=== PATIENT | male | born 1950 | race Caucasian/White ===

== ENCOUNTER 2016-07-04 12:06 | Observation (INO) | payer MEDICARE, OTHER ==
[2016-07-04] MEDS ORDERED: ASPIRIN CHEW 81 MG TABLET PO STA (16:03)
[2016-07-04] MEDS ORDERED: ASPIRIN CHEW 81 MG TABLET ONE (16:05)
[2016-07-04] MEDS ORDERED: oxyCODONE 5 MG TABLET PO PRN (17:16)
[2016-07-04] MEDS ORDERED: ACETAMINOPHEN 325 MG TABLET PO PRN (17:16)
[2016-07-04] MEDS ORDERED: SODIUM CHLORIDE FLUSH 0.9% 10 ML SYRINGE IVP PRN (17:16)
[2016-07-04] MEDS: SODIUM CHLORIDE FLUSH 0.9% 10 ML SYRINGE IVP SCH (22:34)
[2016-07-05] MEDS: SODIUM CHLORIDE FLUSH 0.9% 10 ML SYRINGE IVP SCH (05:42)
[2016-07-05] MEDS ORDERED: ATORVASTATIN 40 MG TABLET PO ONE ×2 (07:53→09:30)
[2016-07-05] MEDS ORDERED: ASPIRIN 325 MG TABLET PO SCH (08:00)
[2016-07-05] MEDS ORDERED: POLYETHYLENE GLYCOL 3350 17 GM PACKET PO SCH (09:00)
[2016-07-05] MEDS ORDERED: LORazepam 2 MG/ML SYRINGE IVP PRN (11:32)
[2016-07-05] MEDS ORDERED: ATORVASTATIN 40 MG TABLET PO SCH (21:00)
== END 2016-07-05 14:14 | disposition home or self-care (01) ==
DX: R20.8 Other disturbances of skin sensation (principal); R20.0 Anesthesia of skin; F17.290 Nicotine dependence, other tobacco product, uncomplicated; Z82.49 Family history of ischemic heart disease and other diseases of the circulatory system; E78.5 Hyperlipidemia, unspecified; I10 Essential (primary) hypertension; I27.2 Other secondary pulmonary hypertension; I51.7 Cardiomegaly; E66.01 Morbid (severe) obesity due to excess calories; Z68.35 Body mass index [BMI] 35.0-35.9, adult
CPT/HCPCS: 36415; 70450; 70551; 80053; 80061; 83690; 85025; 85610; 93005; 93010; 93306; 93880; 96374; 99284; 99285; A9270; G0378; J2060

== ENCOUNTER 2016-07-27 09:59 | Outpatient (CLI) | payer MEDICARE, OTHER | END 2016-07-27 10:00 | disposition home or self-care (01) | DX: G47.30 Sleep apnea, unspecified (principal); G47.8 Other sleep disorders; R06.83 Snoring; G47.10 Hypersomnia, unspecified | CPT/HCPCS: 99203; G0463 ==

== ENCOUNTER 2016-07-30 21:49 | Outpatient (CLI) | payer MEDICARE, OTHER | END 2016-07-30 21:50 | disposition home or self-care (01) | DX: G47.31 Primary central sleep apnea (principal) ==

== ENCOUNTER 2016-08-10 09:19 | Outpatient (CLI) | payer MEDICARE, OTHER ==
[2016-08-10] MEDS ORDERED: ALBUTEROL NEB 2.5 MG/3 ML INH ONE (09:59)
== END 2016-08-10 09:20 | disposition home or self-care (01) ==
DX: R06.00 Dyspnea, unspecified (principal)
CPT/HCPCS: 94060; 94729; J7613

== ENCOUNTER 2016-08-17 10:22 | Outpatient (CLI) | payer MEDICARE, OTHER | END 2016-08-17 10:23 | disposition home or self-care (01) | DX: G47.33 Obstructive sleep apnea (adult) (pediatric) (principal); G47.31 Primary central sleep apnea | CPT/HCPCS: 99213; G0463 ==

== ENCOUNTER 2016-09-02 23:05 | Outpatient (CLI) | payer MEDICARE, OTHER | END 2016-09-02 23:06 | disposition home or self-care (01) | DX: G47.31 Primary central sleep apnea (principal) ==

== ENCOUNTER 2016-09-14 09:10 | Outpatient (CLI) | payer MEDICARE, OTHER | END 2016-09-14 09:11 | disposition home or self-care (01) | DX: G47.33 Obstructive sleep apnea (adult) (pediatric) (principal) | CPT/HCPCS: 99214; G0463 ==

== ENCOUNTER 2016-11-03 08:52 | Outpatient (CLI) | payer MEDICARE, OTHER | END 2016-11-03 08:53 | disposition home or self-care (01) | LOC: SC 08:52 | PROVIDERS: ATTEND Nurse Practitioner Family | DX: G47.33 Obstructive sleep apnea (adult) (pediatric) (principal); G47.31 Primary central sleep apnea | CPT/HCPCS: 99214; G0463; 99212 ==

== ENCOUNTER 2016-11-05 09:35 | Outpatient (CLI) | payer MEDICARE, OTHER ==
[2016-11-05 13:25] LABS: ALBUMIN/GLOBULIN RATIO 1.5 (1.0-2.2); BILIRUBIN,TOTAL 0.9 mg/dL (0.2-1.0); BUN - BLOOD UREA NITROGEN 20 mg/dL (6-20); CALCIUM 9.2 mg/dL (8.5-10.3); CARBON DIOXIDE - CO2 24 mmol/L (21-32); CHLORIDE 105 mmol/L (101-111); CHOL/HDL RATIO 3.9 (<5.0); CHOLESTEROL 131 mg/dL; CREATININE 1.1 mg/dL (0.6-1.2); GFR - MDRD 67 (>89); GLUCOSE 89 mg/dL (70-100); HDL CHOLESTEROL 34 mg/dL; LDL/HDL RATIO 2.4 (<3.6); POTASSIUM 4.5 mmol/L (3.5-5.0); SODIUM 137 mmol/L (135-145); TOTAL PROTEIN 6.7 g/dL (6.7-8.2); TRIGLYCERIDES 68 mg/dL; VLDL CHOLESTEROL 14 mg/dL
== END 2016-11-05 09:36 | disposition home or self-care (01) ==
LOC: LAB.WCP 09:35
PROVIDERS: ATTEND Physician Assistant Medical
DX: E78.5 Hyperlipidemia, unspecified (principal)
CPT/HCPCS: 36415; 80053; 80061

== ENCOUNTER 2017-02-02 09:46 | Outpatient (CLI) | payer MEDICARE, OTHER | END 2017-02-02 09:47 | disposition home or self-care (01) | LOC: SC 09:46 | PROVIDERS: ATTEND Nurse Practitioner Family | DX: G47.33 Obstructive sleep apnea (adult) (pediatric) (principal) | CPT/HCPCS: 99214; G0463; 99212 ==

== ENCOUNTER 2017-02-18 09:36 | Outpatient (CLI) | payer MEDICARE, OTHER ==
--- NOTE | 2017-02-18 11:04 | Ultrasound Report ---
RIGHT UPPER QUADRANT ULTRASOUND: 02/18/2017 CLINICAL INDICATION: Elevated liver enzymes. TECHNIQUE: Real-time scanning was performed with sales representative girls[employer] static images obtained. FINDINGS: The liver measures 15.2 cm. Hepatic echogenicity is increased, compatible with fatty infil tration. No focal parenchymal lesion or intrahepatic biliary dilatation is present. The common bile d uct measures 6 mm. The gallbladder is normal. The right kidney measures 10.9 cm, and demonstrates no hydronephrosis. No free fluid is present. IMPRESSION: FATTY INFILTRATION OF THE LIVER. NO EVIDENCE OF CHOLELITHIASIS OR BILIARY OBSTRUCTION. JOB #: [id number] EXT JOB #:[id number]
== END 2017-02-18 09:37 | disposition home or self-care (01) ==
LOC: DI 09:36
PROVIDERS: ATTEND Physician Assistant Medical
DX: K76.0 Fatty (change of) liver, not elsewhere classified (principal)
CPT/HCPCS: 76705

== ENCOUNTER 2017-04-12 08:46 | Outpatient (CLI) | payer MEDICARE, OTHER | END 2017-04-12 08:47 | disposition home or self-care (01) | LOC: SC 08:46 | PROVIDERS: ATTEND Nurse Practitioner Family | DX: G47.33 Obstructive sleep apnea (adult) (pediatric) (principal); G47.31 Primary central sleep apnea | CPT/HCPCS: 99214; G0463; 99212 ==

== ENCOUNTER 2017-05-19 09:59 | Outpatient (CLI) | payer MEDICARE, OTHER | END 2017-05-19 10:00 | disposition home or self-care (01) | LOC: SC 09:59 | PROVIDERS: ATTEND Nurse Practitioner Family | DX: G47.33 Obstructive sleep apnea (adult) (pediatric) (principal); G47.31 Primary central sleep apnea | CPT/HCPCS: 99214; G0463; 99212 ==

== ENCOUNTER 2017-08-30 13:51 | Outpatient (CLI) | payer MEDICARE, OTHER | END 2017-08-30 13:52 | disposition home or self-care (01) | LOC: SC 13:51 | PROVIDERS: ATTEND Nurse Practitioner Family | DX: G47.33 Obstructive sleep apnea (adult) (pediatric) (principal) | CPT/HCPCS: 99214; G0463; 99212 ==

== ENCOUNTER 2019-08-15 17:45 | Outpatient (CLI) | payer MEDICARE, OTHER | END 2019-08-15 17:46 | disposition home or self-care (01) | LOC: COV 17:45 | PROVIDERS: ATTEND Family Medicine | DX: R05 Cough (principal) ==

== ENCOUNTER 2019-10-05 13:17 | Emergency (ER) | payer MEDICARE, OTHER ==
--- NOTE | 2019-10-05 13:57 | XRAY Report ---
Reason: CHEST WALL PAIN Procedure Date: 10/05/2019 Accession Number: [id number] / [id number] Procedure: XR - Chest 2 View X-Ray CPT Code: 95987 Final Report FULL RESULT: EXAM: CHEST RADIOGRAPHY EXAM DATE: 10/05/2019 01:42 PM. CLINICAL HISTORY: CHEST WALL PAIN. COMPARISON: CHEST 2 VIEW PA/LAT 07/06/2016 3:31 PM. TECHNIQUE: 2 views. FINDINGS: Lungs/Pleura: Patchy opacities in the right lung base. Small right-sided pleural effusion. Mediastinum: Heart and mediastinal contours are unremarkable. Other: None. IMPRESSION: Irregular opacities in the right lung base with small right-sided pleural effusion.. RADIA
[2019-10-05] MEDS ORDERED: LIDOCAINE 1% 2 ML VIAL MC ONE (15:49)
[2019-10-05] MEDS ORDERED: KETOROLAC 60 MG/2 ML VIAL IM STA (15:49)
[2019-10-05] MEDS ORDERED: DEXAMETHASONE 10 MG/ML VIAL PO STA (15:49)
[2019-10-05] MEDS ORDERED: CHERRY SYRUP 10 ML UDC PO ONE (15:49)
[2019-10-05] MEDS ORDERED: cefTRIAXone 1 GM VIAL IM STA (15:49)
--- NOTE | 2019-10-05 15:51 | ED Physician Documentation ---
PD HPI URI - Stated complaint Stated Complaint: R SIDE PAIN - Chief complaint Chief Complaint: Ext Problem - History obtained from History obtained from: Patient - History of Present Illness Timing - onset: How many weeks ago (2) Timing duration: Days (2) Timing details: Gradual onset, Still present, Waxing and waning Associated symptoms: Dry cough, Chest pain Contributing factors: Other (fall against the right ribs) Improves by: Rest Worsened by: Activity, Breathing, Position Similar symptoms before: Diagnosis (pneumonia) Recently seen: Other (had coronavirus test one month ago after exposure) - Additional information Additional information: 69-year-old male with a prior history of pneumonia has had a fall against a wall of about 3 feet hitting his right chest wall about 2 weeks ago. He had pain initially with this and that seemed to resolve and then about 3 days ago his pain increased he has a sharp pain with inspiration and a background pain of about 5 out of 10. He has a cough he denies fever or production from the cough. He has had pneumonia more than once and he remembers the right lung being involved more frequently. Review of Systems Constitutional: denies: Fever, Myalgias Eyes: denies: Decreased vision Ears: denies: Ear pain Nose: denies: Rhinorrhea / runny nose, Congestion Throat: denies: Sore throat Cardiac: reports: Chest pain / pressure. denies: Palpitations, Pedal edema, Calf pain Respiratory: reports: Dyspnea, Cough GI: denies: Abdominal Pain, Nausea, Vomiting : denies: Dysuria, Frequency PD PAST MEDICAL HISTORY - Past Medical History Cardiovascular: None Respiratory: None Endocrine/Autoimmune: None GI: None : None HEENT: None Psych: None Musculoskeletal: None Derm: None - Past Surgical History Past Surgical History: Yes - Present Medications Home Medications: Ambulatory Orders Medication Instructions Recorded Confirmed Aspirin [Aspirin EC] 81 mg PO DAILY #30 tablet. 07/05/16 Atorvastatin Calcium 20 mg PO DAILY #30 tablet 07/05/16 Azithromycin [Zithromax] 250 mg PO DAILY #6 tablet 10/05/19 Benzonatate [Tessalon Perle] 100 - 200 mg PO TID PRN #30 capsule 10/05/19 Hydrocodone/Acetaminophen 1 - 2 each PO Q6H PRN #14 tablet 10/05/19 [Hydrocodon-Acetaminophen 5-325] - Allergies Allergies/Adverse Reactions: Allergies Allergy/AdvReac Type Severity Reaction Status Date / Time No Known Drug Allergies Allergy Verified 10/05/19 13:24 - Social History Does the pt smoke?: Yes Smoking Status: Current every day smoker Does the pt drink ETOH?: Yes Does the pt have substance abuse?: No - Immunizations Immunizations are current?: No Immunizations: TDAP >10years/unknown PD ED PE NORMAL - Vitals Vital signs reviewed: Yes (tachy and hypertension with low grade fever) - General General: Alert and oriented X 3, No acute distress, Well developed/nourished - HEENT HEENT: Atraumatic, PERRL, EOMI - Neck Neck: Supple, no meningeal sign, No bony TTP - Cardiac Cardiac: RRR, No murmur - Respiratory Respiratory: No respiratory distress, Other (rhonchi in the right base with fair air movement otherwise. ) - Abdomen Abdomen: Soft, Non tender - Back Back: No CVA TTP, No spinal TTP - Derm Derm: Normal color, Warm and dry, No rash - Extremities Extremities: No deformity, No edema - Neuro Neuro: Alert and oriented X 3, power lineman 2-12 intact, No motor deficit, No sensory deficit, Normal speech Eye Opening: Spontaneous Motor: Obeys Commands Verbal: Oriented GCS Score: 15 - Psych Psych: Normal mood, Normal affect Results - Vitals Vitals: Vital Signs - 24 hr 10/05/19 13:24 Temperature 37.8 C H Heart Rate 108 H Respiratory 19 Rate Blood Pressure 188/99 H O2 Saturation 95 Oxygen O2 Source Room air PD MEDICAL DECISION MAKING - ED course Complexity details: reviewed old records, reviewed results, re-evaluated patient, considered differential, d/w patient ED course: 69-year-old male with a prior history of pneumonia appears to have pneumonia on his chest x-ray today. He does have a contusion to the chest wall remotely. He is administered dexamethasone 10 mg Toradol 60 mg and Rocephin 1 [address] IM[address] will place him on a azithromycin administer some pain medication and cough suppressant. Departure - Departure Disposition: 01 Home, Self Care Clinical Impression: Pneumonia Qualifiers: Pneumonia type: due to unspecified organism Laterality: right Lung location: lower lobe of lung Qualified Code(s): J18.9 - Pneumonia, unspecified organism Condition: Stable Instructions: ED Pneumonia Adult Follow-Up: Thuy Rosen PA-C [Primary Care Provider] - Prescriptions: Azithromycin [Zithromax] 250 mg PO DAILY #6 tablet Benzonatate [Tessalon Perle] 100 - 200 mg PO TID PRN #30 capsule PRN Reason: Cough Hydrocodone/Acetaminophen [Hydrocodon-Acetaminophen 5-325] 1 - 2 each PO Q6H PRN #14 tablet PRN Reason: pain
[2019-10-05 16:30] VITALS: BP 165/88
== END 2019-10-05 16:31 | disposition home or self-care (01) ==
LOC: ED 13:17
DX: J18.9 Pneumonia, unspecified organism (principal); S20.211D Contusion of right front wall of thorax, subsequent encounter; F17.200 Nicotine dependence, unspecified, uncomplicated; Z20.828 Contact with and (suspected) exposure to other viral communicable diseases
CPT/HCPCS: 71046; 81599; 96372; 99284; A9270

== ENCOUNTER 2019-11-12 14:49 | Outpatient (CLI) | payer MEDICARE, OTHER ==
[2019-11-12 15:19] LABS: CALCIUM 9.4 mg/dL (8.5-10.3); CREATININE 1.1 mg/dL (0.6-1.2)
[2019-11-12] MEDS ORDERED: IOVERSOL 320 100 ML VIAL IVP ONE ×2 (15:50→16:46)
--- NOTE | 2019-11-12 16:23 | CT Report ---
PROCEDURE: CHEST W INDICATIONS: DYSPNEA ON EXERTION CONTRAST: IV CONTRAST: Optiray 320 ml: 100 PO CONTRAST: *NO PO CONTRAST TECHNIQUE: After the administration of intravenous contrast, 5 mm thick sections acquired from the pulmonary api fredo to the posterior costophrenic angles. 7 mm thick coronal MIP reformats were acquired. For radia tion dose reduction, the following was used: automated exposure control, adjustment of mA and/or kV according to patient size. COMPARISON: Chest CT examination dated 05.01.14 FINDINGS: Image quality: Excellent. Lungs and pleura: No acute air space opacities. There is new scarring within the right anterior lung base. There is a new, 13 mm nodular density within the right anterolateral costophrenic angle (serie s 3 image 219). No pleural effusions or pneumothorax. Central and peripheral airways are patent and normal in caliber. Mediastinum: Heart size is normal. There is calcification of the coronary vasculature. No pericardi al effusion. No mediastinal or hilar adenopathy by size criteria. Thoracic aorta and central pulmon connie arteries are normal in size. Esophagus is normal in caliber. No hiatal hernia. Bones and chest wall: No suspicious bony lesions. No vertebral body compression fractures. No axil gianna or supraclavicular adenopathy by size criteria. Thyroid gland is within normal limits. Abdomen: Visualized upper abdominal solid organs appear normal. Upper abdominal bowel loops are nor mal in caliber. IMPRESSION: 1. New right lung base nodule; follow-up is recommended as below. 2. Coronary artery disease. 3. Right lung base scarring. Solitary nodule size: >8 mm * either low or high risk patients * consider follow-up CT at 3 months, and/or CT-PET, and/or biopsy Reviewed by: Bridger Villatoro MD on 11/12/2019 4:22 PM PDT Approved by: Bridger Villatoro MD on 11/12/2019 4:22 PM PDT Station ID: [id number]
== END 2019-11-12 14:50 | disposition home or self-care (01) ==
LOC: LAB 14:49 → DI 14:50
PROVIDERS: ATTEND Physician Assistant Medical
DX: R91.1 Solitary pulmonary nodule (principal); I25.10 Atherosclerotic heart disease of native coronary artery without angina pectoris; R91.8 Other nonspecific abnormal finding of lung field; R06.09 Other forms of dyspnea
CPT/HCPCS: 36415; 71260; 80048; Q9967

== ENCOUNTER 2020-04-23 08:59 | Outpatient (CLI) | payer MEDICARE, OTHER ==
--- NOTE | 2020-04-23 10:31 | CT Report ---
PROCEDURE: CHEST WO INDICATIONS: Pulmonary nodule TECHNIQUE: Noncontrast 5 mm thick sections acquired from the pulmonary apices to the posterior costophrenic angl es. 7 mm thick coronal and sagittal MIP reformats were then acquired. For radiation dose reduction, the following was used: automated exposure control, adjustment of mA and/or kV according to patient size. COMPARISON: 11/12/2019 FINDINGS: Image quality: Excellent. Lungs and pleura: Decreased size and confluence of the opacity in the right anterolateral costophren ic angle (series 4 images 194-213). Lungs otherwise clear. No pleural effusions or pneumothorax. Cent ral and peripheral airways are patent and normal in caliber. Mediastinum: Heart size is normal. No pericardial effusion. No mediastinal adenopathy by size crit eria. Thoracic aorta and central pulmonary arteries are normal in size. Esophagus is normal in maría anuradha. No hiatal hernia. Bones and chest wall: No suspicious bony lesions. No vertebral body compression fractures. No axil gianna or supraclavicular adenopathy by size criteria. Abdomen: Visualized upper abdominal solid organs and bowel loops appear normal in the absence of con trast. IMPRESSION: Area of nodular opacity in the anterior right lung base is decreased but has not entirely resolved. T his probably represents scarring or chronic atelectasis. Reviewed by: Celestino Lozoay MD on 04/23/2020 10:29 AM PST Approved by: Celestino Lozoya MD on 04/23/2020 10:29 AM PST Station ID: [id number]
== END 2020-04-23 09:00 | disposition home or self-care (01) ==
LOC: DI 08:59
PROVIDERS: ATTEND Physician Assistant Medical
DX: R91.1 Solitary pulmonary nodule (principal)
CPT/HCPCS: 71250

== ENCOUNTER 2021-01-05 15:57 | Outpatient (CLI) | payer MEDICARE, OTHER | END 2021-01-05 23:59 | disposition home or self-care (01) | LOC: LAB.N 15:57 | PROVIDERS: ATTEND Physician Assistant Medical | DX: U07.1 COVID-19 (principal) ==

== ENCOUNTER 2021-01-24 12:46 | Outpatient (CLI) | payer MEDICARE, OTHER ==
--- NOTE | 2021-01-24 14:02 | CT Report ---
PROCEDURE: CHEST WO INDICATIONS: PULMONARY NODULE TECHNIQUE: Noncontrast images were acquired from the pulmonary apices to the posterior costophrenic angles. Mul tiplanar MIP reformats were then acquired. For radiation dose reduction, the following was used: au tomated exposure control, adjustment of mA and/or kV according to patient size. COMPARISON: 04/23/2020, 06/13/2019 FINDINGS: Image quality: Excellent. Lungs and pleura: Bilateral patchy interstitial type infiltrates are seen, which are more prominent a long the lung periphery and inferiorly. The previously seen pulmonary nodule is obscured. No pleural effusions or pneumothorax. Central and peripheral airways are patent and normal in caliber. Mediastinum: Heart size is normal. Mild to moderate coronary artery calcification is seen. No perica rdial effusion. No mediastinal adenopathy by size criteria. Thoracic aorta and central pulmonary ar teries are normal in size. Esophagus is normal in caliber. No hiatal hernia. Bones and chest wall: No suspicious bony lesions. Age-appropriate degenerative changes are seen. N o vertebral body compression fractures. No axillary or supraclavicular adenopathy by size criteria. The thyroid is small in size. Abdomen: Visualized upper abdominal solid organs and bowel loops appear normal in the absence of con trast. IMPRESSION: Bilateral interstitial type infiltrates are seen. Please consider COVID pneumonia. The previously seen pulmonary nodule is obscured. Please consider a noncontrast chest CT follow-up in 6-12 weeks for further evaluation. Incidental note is made of: Mild to moderate coronary artery calcification Reviewed by: Romario Ramon MD on 01/24/2021 1:00 PM LUCINA Approved by: Romario Ramon MD on 01/24/2021 1:00 PM LUCINA Station ID: [id number]
== END 2021-01-24 12:47 | disposition home or self-care (01) ==
LOC: DI 12:46
PROVIDERS: ATTEND Physician Assistant Medical
DX: R91.8 Other nonspecific abnormal finding of lung field (principal)

== ENCOUNTER 2021-03-30 09:26 | Outpatient (CLI) | payer MEDICARE, OTHER ==
--- NOTE | 2021-03-30 20:09 | CT Report ---
PROCEDURE: CHEST WO INDICATIONS: PULMONARY NODULE, COUGH TECHNIQUE: Noncontrast 1mm axial images were acquired from the pulmonary apices to the posterior costophrenic an gles. Axial 5 mm soft tissue kernel reconstructions were performed as well as 8 mm axial MIP and cor onal and sagittal 5 mm reformations. For radiation dose reduction, the following was used: automate d exposure control, adjustment of mA and/or kV according to patient size. COMPARISON: CT chest without contrast, 01/24/2021 and 04/23/2020 FINDINGS: Image quality: Excellent. Lungs and pleura: There are bilateral subpleural groundglass infiltrates. Compared with the last exa m, bilateral subpleural nodular densities are significantly decreased. There is a subpleural density in the right middle lobe, unchanged, most likely carcinoma atelectasis. No pleural effusions or pneu mothorax. Central and peripheral airways are patent and normal in caliber. Mediastinum: Heart size is normal. There is moderate coronary artery opacification. No pericardial effusion. No mediastinal adenopathy by size criteria. Thoracic aorta and central pulmonary arteries are normal in size. Esophagus is normal in caliber. No hiatal hernia. Bones and chest wall: No suspicious bony lesions. No vertebral body compression fractures. No axil gianna or supraclavicular adenopathy by size criteria. The thyroid is normal in size and there are no incidental findings. Abdomen: Mild hepatic steatosis. Visualized upper abdominal solid organs and bowel loops otherwise a ppear normal in the absence of contrast. IMPRESSION: 1. Interval decrease in bilateral subpleural nodular densities. 2. Mild subpleural groundglass infiltrates are present, consistent with residual pneumonitis or pneum onia. 3. Stable subpleural density in the right middle lobe, likely scars/atelectasis. 4. Moderate coronary artery calcification. Reviewed by: Marck Jeffers MD on 03/30/2021 8:08 PM PST Approved by: Marck Jeffers MD on 03/30/2021 8:08 PM PST Station ID: [id number]
== END 2021-03-30 09:27 | disposition home or self-care (01) ==
LOC: DI 09:26
PROVIDERS: ATTEND Physician Assistant Medical
DX: R91.8 Other nonspecific abnormal finding of lung field (principal); I25.10 Atherosclerotic heart disease of native coronary artery without angina pectoris

== ENCOUNTER 2023-06-09 11:30 | Outpatient (CLI) | payer MEDICARE, OTHER ==
[2023-06-09 17:39] LABS: BASOPHILS # (AUTO) 0.1 10^3/uL (0.0-0.1); BASOPHILS % (AUTO) 0.6 %; EOSINOPHILS # (AUTO) 0.1 10^3/uL (0.0-0.7); EOSINOPHILS % (AUTO) 0.4 %; HCT - HEMATOCRIT 42.2 % (42.0-52.0); HGB - HEMOGLOBIN 14.4 g/dL (14.0-18.0); LYMPHOCYTES # (AUTO) 1.9 10^3/uL (1.5-3.5); LYMPHOCYTES % (AUTO) 16.7 %; MEAN CORPUSCULAR HEMOGLOBIN 29.2 pg (27.0-31.0); MEAN CORPUSCULAR HGB CONC 34.1 g/dL (32.0-36.0); MEAN CORPUSCULAR VOLUME 85.6 fL (80.0-94.0); MEAN PLATELET VOLUME 10.3 fL (7.4-11.4); MONOCYTES # (AUTO) 0.8 10^3/uL (0.0-1.0); MONOCYTES % (AUTO) 6.9 %; NEUTROPHILS # (AUTO) 8.4 10^3/uL (1.5-6.6); NEUTROPHILS % (AUTO) 75.2 %; PLT - PLATELET COUNT 238 10^3/uL (130-450); RED BLOOD COUNT 4.93 10^6/uL (4.70-6.10); WHITE BLOOD COUNT 11.2 x10^3/uL (4.8-10.8)
[2023-06-09 17:49] LABS: CALCIUM 9.5 mg/dL (8.5-10.3); CREATININE 1.3 mg/dL (0.6-1.3); POTASSIUM 4.1 mmol/L (3.5-4.5); URIC ACID 8.5 mg/dL (4.4-7.6)
== END 2023-06-09 11:45 | disposition home or self-care (01) ==
LOC: LAB.N 11:30
PROVIDERS: ATTEND Family Medicine
DX: M10.9 Gout, unspecified (principal)
CPT/HCPCS: 36415; 80048; 84550; 85025; 85651